=== PATIENT | male | born 1985 ===

== ENCOUNTER 2020-09-11 13:29 | Outpatient (REF) | payer OTHER, SELFPAY ==
[2020-09-14 20:06] LABS: COVID-19 RT-PCR Result Not detected ((See Note))
== END 2020-09-11 13:49 ==
LOC: LBN 13:29
PROVIDERS: PCP Emergency Medicine; Visit Provider Emergency Medicine
DX: Z11.59 Encounter for screening for other viral diseases (principal)
CPT/HCPCS: U0003